=== PATIENT | male | born 1965 | race Caucasian/White ===

== ENCOUNTER 2017-02-27 23:47 | Emergency (ER) | payer OTHER ==
[~2017-02-27] VITALS: Ht 175.3 cm; Wt 116.1 kg
[~2017-02-27 23:47] MED LIST: ALBUTEROL SULF8.5 GM INH; ASPIRIN EC81 MG PO; FISH OIL500 MG PO; GABAPENTIN300 MG PO; HUMALOG100 UNIT/1 SUB-Q; LANTUS100 UNITS/ SUB-Q; LISINOPRIL5 MG PO; METFORMIN HCL1000 MG PO; NAPROXEN500 MG PO; NORCO 10-325 T1 EACH PO; SIMVASTATIN80 MG PO; TRAZODONE HCL150 MG PO; [UNRECOGNIZED DRUG - OTHER] PO
[2017-02-27] MEDS ORDERED: ATORVASTATIN CA80 MG PO (23:57)
[2017-02-28] MEDS ORDERED: NOVOLOG100 UNIT/1 SUB-Q (00:10)
[2017-02-28] MEDS ORDERED: PROTONIX40 MG PO (03:48)
== END 2017-02-28 04:07 | disposition home or self-care (01) ==
LOC: ED 23:47
DX: R10.11 Right upper quadrant pain (principal); E11.9 Type 2 diabetes mellitus without complications; J45.909 Unspecified asthma, uncomplicated; Z87.891 Personal history of nicotine dependence; Z88.5 Allergy status to narcotic agent; Z88.8 Allergy status to other drugs, medicaments and biological substances; Z79.899 Other long term (current) drug therapy; Z79.82 Long term (current) use of aspirin; Z79.4 Long term (current) use of insulin
CPT/HCPCS: 74177; 76705; 80053; 81001; 83690; 85025; 96374; 96375; 99284; J1170; J2405; Q9967

== ENCOUNTER 2017-07-17 15:18 | Emergency (ER) | payer OTHER ==
[~2017-07-17] VITALS: Ht 175.3 cm; Wt 125.2 kg
[~2017-07-17 15:18] MED LIST changes: +ATORVASTATIN CA80 MG PO; +NOVOLOG100 UNIT/1 SUB-Q; +PROTONIX40 MG PO
[2017-07-17] MEDS ORDERED: PRAVASTATIN SOD20 MG PO (16:05)
[2017-07-17] MEDS ORDERED: FUROSEMIDE20 MG PO (16:06)
--- NOTE | 2017-07-18 11:57 | EKG ---
[facility] [address] [place] [address] Signed Normal sinus rhythm Inferior infarct , age undetermined Abnormal ECG When compared with ECG of 06-JUN-2016 21:49, No significant change was found Confirmed by GIRMA DOTSON MD ([id number]) on 07/18/2017 11:57:06 AM Electronically Signed By: GIRMA DOTSON MD 07/18/17 1157 PATIENT NAME: SANDYRD ORALIA Electrocardiogram DATE OF : 65 PHYSICIAN: GIRMA DOTSON MD REPORT #: [id number] REPORT IS CONFIDENTIAL AND NOT TO BE RELEASED WITHOUT AUTHORIZATION
== END 2017-07-17 22:07 | disposition home or self-care (01) ==
LOC: ED 15:18
DX: R60.0 Localized edema (principal); M79.605 Pain in left leg; E11.9 Type 2 diabetes mellitus without complications; J45.909 Unspecified asthma, uncomplicated; Z79.899 Other long term (current) drug therapy; Z88.5 Allergy status to narcotic agent; Z86.718 Personal history of other venous thrombosis and embolism
CPT/HCPCS: 71020; 71260; 80053; 81001; 83735; 83880; 84484; 85025; 85379; 93005; 93010; 93970; 94640; 99284; Q9967